=== PATIENT | male | born 1960 | race Caucasian/White ===

== ENCOUNTER 2018-02-16 13:49 | Observation (INO) ==
[2018-02-16 14:34] VITALS: O2SAT 97
[2018-02-16 14:36] VITALS: BMI 35.6
--- NOTE | 2018-02-16 14:38 | History & Physical Report ---
History of Present Illness Date: 02/16/18 Chief complaint: Right leg swelling HPI: Stevie is a 57-year-old male who has a history of left occlusive popliteal thrombus in 2013 following a prolonged car ride. He was admitted to the hospital during that incident, and underwent testing for protein C and protein S deficiency, as well as factor V Leiden which were all negative. He received 6 months of anticoagulation therapy (warfarin), and that was successfully discontinued following the course of treatment. He has recently undergone another extensive period of travel, in which he went on a 12 hour trip by car, followed shortly after that by an 8 hours trip by car. He presented to Dr. Mares's office with complaint of right lower extremity swelling due to known prior history of DVT. He was sent for outpatient sono, which revealed a right lower extremity distal femoral occlusive thrombus. He is being placed in observation status to start anticoagulation therapy at Dr. Mares's request. He reports feeling fairly well. Minimal pain in leg. He does have some mild left LE pedal edema, which he reports is chronic since his last DVT. No chest pain, cough, or SOA. He prefers to avoid telemetry if at all possible due to the discomfort of the patches. He has been informed to notify us right away if he develops any SOA or chest pain. He is in agreement. Review of Systems All systems PM: 10-point ROS was reviewed, no additional remarkable complaints except - Constitutional Constitutional: Absent: headache(s) - Cardiovascular Cardiovascular: Present: edema. Absent: chest pain, dyspnea on exertion, orthopnea, heart murmur Vascular: Present: pedal edema, unilateral swelling - Respiratory Respiratory: Absent: cough, dyspnea, hemoptysis, dyspnea on exertion, pain on inspiration - Gastrointestinal Gastrointestinal: Present: other (Denies history of ulcers of GI bleeding. ). Absent: abdominal pain, hematemesis, melena, nausea, vomiting - Musculoskeletal Musculoskeletal: Absent: back pain Past Medical History Medical History: Medical History (Last Reviewed 02/16/18 @ 14:38 by Ann Rogers APRN) Left leg DVT HTN (hypertension) Surgical History: Finger Surgery. Tonsils. Colonoscopy- normal Family History: Colon CA AFib CAD Stroke. No known clotting DO. Family History: As Above - Social History Smoking status: Never smoker Substance use type: does not use Alcohol intake frequency: does not drink Current occupational status: employed Current residence: Apartment/Private Home Medications Home Medications Medication Instructions Recorded Confirmed Type Mapap Extra Strength 500 mg tablet 500 mg PO .COMPLEX PRN tab 11/08/17 History Lisinopril [Prinivil] 10 mg PO HS 02/16/18 02/16/18 History Allergies Allergy/AdvReac Type Severity Reaction Status Date / Time Penicillins Allergy Verified 02/16/18 11:16 Exam Vital Signs: Temperature 97.9 F 02/16/18 14:33 Pulse Rate 88 02/16/18 14:33 Respiratory Rate 12 02/16/18 14:33 Blood Pressure 137/79 02/16/18 14:33 Pulse Oximetry 97 02/16/18 14:33 - Constitutional Present: no acute distress, average body habitus, cooperative - Routine HEENT Exam Head: Present: normocephalic, atraumatic Eye: Present: EOMI, PERRL, normal accommodation ENT: Present: mucous membranes moist - Routine Neck Exam Present: trachea midline. Absent: JVD, carotid bruit, tenderness, swelling - Routine Respiratory Exam Present: CTA bilaterally. Absent: accessory muscle use, dyspnea, decreased breath sounds, rales, rhonchi, wheezes, crackles - Routine Cardiovascular Exam Present: RRR, S1, S2, no murmur. Absent: gallop, rubs, S3, S4 - Routine Abdominal Exam Present: soft, normoactive bowel sounds, non distended, non tender - Routine Extremities Exam Present: edema (Right LE edema, 3+, Left LE Edema, 1+ chronic. Changes consistent with PVD. ), pulses intact, tenderness. Absent: non tender - Routine Skin Exam Present: intact, dry, warm - Routine Neurological Exam Present: alert, oriented X3, moving all extremities - Routine Psychiatric Exam Present: normal affect, normal thought process, cooperative Results - Labs CBC & Chem 7: 02/16/18 14:56 Labs: Pending - Imaging and Cardiology Venous US Additional comments: Impression: Occlusive deep vein thrombosis in the distal superficial femoral through the popliteal veins. Results were discussed with the ordering physician at 1335 on February 16, 2018. Patient will wait in the radiology waiting area for hospital admission. . Assessment and Plan (1) Right femoral vein DVT Current visit: Yes Status: Acute Assessment and Plan: Impression: Provoked Right LE DVT (prolonged travel) H/O left provoked DVT HTN HLD OA Plan: 02/16/18 Observation. Start oral anticoagulant therapy. NOACs preferred- reviewed the risks/benefits of Pradaxa, Xarelto, Eliquis vs. Warfarin/LMWH bridge. He is agreeable to starting Xarelto. Symptoms to report provided. No ETOH use, hx of GI bleeding, ulcers, etc. Check CBC, INR now for baseline. No chest pain or SOA- will hold off on telemetry for now. If he develops any additional symptoms, he is to report them immediately. Would recommend that he continue Xarelto x 6 months. At that point, he could be referred to hematology for clotting d/o W/U if desired. Protein C,S and Factor V all normal in 2013. Consider prophylactic blood thinners for future prolonged travel once he is off the blood thinners. Home meds for HTN- lisinopril. Likely discharge tomorrow. Will order PAIGE nilson prior to discharge tomorrow. DVT Prophylaxis: Xarelto Resuscitation Status: Full Code - Physician Narrative Narrative: Date: 02/16/18 Time: 1610 S: Pt doing well, denies any acute complaints other than some swelling in his right LE. Pt denies any f/c, cp sob. O: Gen: AAOx3, no acute distress Cards: RRR without mumurs Lungs: CTAB without wheezing A/P: DVT-Agree with starting NOACs, discussed with pt risks of bleeding and he was agreeable to start anti-coagulation. Pt will need to f/u with pcp and figure out if 6 months is enough of a duration as pt has had a previous clot. Pt otherwise stable and can likely discharge tomorrow. Hospital Course Summary Disclaimer: The visit summary below is not to be considered part of the above Progress Note. Hospital Course: Impression: Provoked Right LE DVT (prolonged travel) H/O left provoked DVT HTN HLD OA Plan: 02/16/18 Observation. Start oral anticoagulant therapy. NOACs preferred- reviewed the risks/benefits of Pradaxa, Xarelto, Eliquis vs. Warfarin/LMWH bridge. He is agreeable to starting Xarelto. Symptoms to report provided. No ETOH use, hx of GI bleeding, ulcers, etc. Check CBC, INR now for baseline. No chest pain or SOA- will hold off on telemetry for now. If he develops any additional symptoms, he is to report them immediately. Would recommend that he continue Xarelto x 6 months. At that point, he could be referred to hematology for clotting d/o W/U if desired. Protein C,S and Factor V all normal in 2013. Consider prophylactic blood thinners for future prolonged travel once he is off the blood thinners. Home meds for HTN- lisinopril. Likely discharge tomorrow. Will order PAIGE devine prior to discharge tomorrow.
[2018-02-16] MEDS ORDERED: ACETAMINOPHEN 325 MG TABLET PO PRN (15:13)
[2018-02-16] MEDS ORDERED: SALINE FLUSH 10ml SYRINGE IV PRN (15:13)
[2018-02-16] MEDS ORDERED: ONDANSETRON 4 MG/2 ML INJECTION IVP PRN (15:13)
[2018-02-16] MEDS ORDERED: SENNA + DOCUSATE TABLET PO PRN (15:13)
[2018-02-16] MEDS: RIVAROXABAN 15 MG TABLET PO SCH (15:46)
[2018-02-16] MEDS ORDERED: LISINOPRIL 10 MG TABLET PO SCH (21:00)
[2018-02-17 04:43] VITALS: RESP 18
[2018-02-17 07:34] VITALS: BP 130/67; PULSE 82; TEMP 96.8
[2018-02-17] MEDS: RIVAROXABAN 15 MG TABLET PO SCH (09:05)
--- NOTE | 2018-02-17 09:05 | Discharge Summary ---
Discharge Information Date of admission: 02/16/18 14:13 Anticipated date of discharge: 02/17/18 Attending Physician: Agueda Cardenas MD Primary care physician: Rito Mares, DO - Discharge Diagnosis (1) Right femoral vein DVT Status: Acute Impression: Provoked Right LE DVT (prolonged travel) H/O left provoked DVT HTN HLD OA Mild anemia Mild leukopenia - Procedures Procedures: Doppler Impression: Occlusive deep vein thrombosis in the distal superficial femoral through the popliteal veins. Results were discussed with the ordering physician at 1335 on February 16, 2018. Patient will wait in the radiology waiting area for hospital admission. . - Laboratory Labs: 02/17/18 04:39 02/17/18 04:39 History of Present Illness HPI: Stevie is a 57-year-old male who has a history of left occlusive popliteal thrombus in 2013 following a prolonged car ride. He was admitted to the hospital during that incident, and underwent testing for protein C and protein S deficiency, as well as factor V Leiden which were all negative. He received 6 months of anticoagulation therapy (warfarin), and that was successfully discontinued following the course of treatment. He has recently undergone another extensive period of travel, in which he went on a 12 hour trip by car, followed shortly after that by an 8 hours trip by car. He presented to Dr. Mares's office with complaint of right lower extremity swelling due to known prior history of DVT. He was sent for outpatient sono, which revealed a right lower extremity distal femoral occlusive thrombus. He is being placed in observation status to start anticoagulation therapy at Dr. Mares's request. He reports feeling fairly well. Minimal pain in leg. He does have some mild left LE pedal edema, which he reports is chronic since his last DVT. No chest pain, cough, or SOA. He prefers to avoid telemetry if at all possible due to the discomfort of the patches. He has been informed to notify us right away if he develops any SOA or chest pain. He is in agreement. Objective Vital signs: Temperature 96.8 F 02/17/18 07:32 Pulse Rate 82 02/17/18 07:32 Respiratory Rate 18 02/17/18 07:32 Blood Pressure 130/67 02/17/18 07:32 Pulse Oximetry 97 02/17/18 07:32 Height/Weight/BMI: Height 1.88 m Weight 123.3 kg Body Mass Index 35.6 - Constitutional Present: no acute distress, well nourished, well developed, cooperative - Routine HEENT Exam Head: Present: normocephalic, atraumatic Eye: Present: EOMI, PERRL ENT: Present: mucous membranes moist - Routine Respiratory Exam Present: CTA bilaterally. Absent: accessory muscle use, dyspnea, decreased breath sounds, rales, rhonchi, wheezes, crackles - Routine Cardiovascular Exam Present: RRR, S1, S2, no murmur. Absent: S3, S4, click - Routine Abdominal Exam Present: soft, normoactive bowel sounds, non distended, non tender - Routine Extremities Exam Present: edema (Bilaterally, right > left), pulses intact. Absent: extremity cold to touch - Routine Back/Spine/Pelvis Exam Back/Spine: Present: full ROM - Routine Musculoskeletal Exam Musculoskeletal: Present: normal strength, moving extremities well - Routine Skin Exam Present: intact, dry, warm - Routine Neurological Exam Present: alert, oriented X3, moving all extremities - Routine Psychiatric Exam Present: normal affect, normal thought process, cooperative, good insight, good judgment Hospital Course This is a general summary of the patient's hospital course. For more details refer to the complete medical record. Hospital course: Impression: Provoked Right LE DVT (prolonged travel) H/O left provoked DVT HTN HLD OA Plan: 02/16/18 Observation. Start oral anticoagulant therapy. NOACs preferred- reviewed the risks/benefits of Pradaxa, Xarelto, Eliquis vs. Warfarin/LMWH bridge. He is agreeable to starting Xarelto. Symptoms to report provided. No ETOH use, hx of GI bleeding, ulcers, etc. Check CBC, INR now for baseline. No chest pain or SOA- will hold off on telemetry for now. If he develops any additional symptoms, he is to report them immediately. Would recommend that he continue Xarelto x 6 months. At that point, he could be referred to hematology for clotting d/o W/U if desired. Protein C,S and Factor V all normal in 2013. Consider prophylactic blood thinners for future prolonged travel once he is off the blood thinners. Home meds for HTN- lisinopril. Likely discharge tomorrow. Will order PAIGE hose prior to discharge tomorrow. 02/17/2018 Stevie is doing very well this morning. He reports minimal pain in lower extremities. Shortness of air, no chest pain. Eating well, no GI upset. He is anxious to return home this morning. I again reviewed the risk and benefit of Xarelto with him. He again was given strict return precautions in regards to increasing pain, color or temperature change of lower extremity, chest pain, shortness of air, or signs and symptoms of GI bleeding he needs to return to the hospital. He has been provided a Xarelto co-pay card to assist with medication cost. He reports minimal pain, does not feel that he needs any prescription pain medication at the time of dismissal. Does have very mild anemia and leukopenia, which will need to be rechecked within the next week. Called and d/w Dr. Goyal this morning. Will check LDH, B12, Folate, MMA, Homocysteine today. He is to follow up with Dr. Goyal at the end of next week. Again, he may benefit from consideration for prophylactic anticoagulation when long trips or planned if he does not meet requirements for lifelong anticoagulation. (We discussed this as well). He has no other concerns. He is agreeable for dismissal. Time spent with patient: 25 - 35 minutes Resuscitation Status: Full Code Discharge Plan - Discharge Disposition Discharge Date: 02/17/18 Disposition: 01 Discharged Home, Self-Care *Condition: Stable Reason For Visit (Visit label in EMR): DVT - Discharge Medications *Discharge Medications: New Acetaminophen [Tylenol] 325 - 650 mg PO Q5H PRN tab PRN Reason: Discomfort Rivaroxaban [Xarelto] 1 each PO WM 30 Days #1 tab.ds.pk Rivaroxaban [Xarelto] 20 mg PO WS #30 tab Continue Lisinopril [Prinivil] 10 mg PO HS Discontinued Mapap Extra Strength 500 mg tablet 500 mg PO .COMPLEX PRN tab PRN Reason: pain - Discharge Packet/Instructions *Diet: As tolerated. *Activity: No strenuous activity. Keep right leg elevated when sitting. Hot pack as needed for pain. *Pain Management/Treatment: Tylenol as needed for pain. Avoid Ibuprofen/Aleve *Wound Care: N/A *Expected Signs/Symptoms: Some mild-moderate pain. Low grade fever. Some mild redness, swelling. *Notify Physician if: Fever over 101. Chest pain, shortness of air. Increasing redness, warmth. If leg becomes cool/cold, seek care immediately. j. Blood in stool, urine or vomit. *During Business Hours Contact: Dr. Mares's office *After Business Hours Contact: [facility] *Pending Lab/Results: Follow up w/Provider - Referrals/Follow Up *Referrals/Follow Up: Tom Goyal MD [Physician] - 1 Week (Please call Dr. Goyal's office on Monday. He would like to see you or Monday of this next week. ) Rito Mares DO [Primary Care Provider] - 1 Week - Patient Handouts Patient Handouts: Rivaroxaban (By mouth) - Dismissal Complete Discharge Instructions are:: Complete Physician Narrative - Narrative Physician: Agueda Cardenas MD Attestation Narrative: Date: 02/17/18 Time: 12:05 PM-I examined the patient independently. I reviewed this chart, the patient history, and the [employer]PRENTICE's/PA's documented findings as above. We discussed and formulated the assessment and plan as above with the additions below.-Dr. Cardenas Patient was seen accompanied by his brother. Patient states that the swelling in his right leg is improved today compared to yesterday. He denies any pain. He denies any shortness of breath or chest discomfort. He denies any history of hematemesis, hematochezia, or black stools. On exam he is alert and in no acute distress. Chest is clear to auscultation. Cardiovascular reveals a regular rate and rhythm. Abdomen is soft and nontender. Extremities reveal trace edema bilaterally. The patient had a DVT in 2013 related to a long car ride. At that time he was on Coumadin and had no difficulties with bleeding issues. Lab-white count of 1.9, down from 2.3. Hemoglobin 12.3. Platelets are normal at 201. Neutrophils 62%. Bands 8%. During his hospitalization in 2013 with DVT his white count was 3.4-3.8 and hemoglobin was in the 12 range then. Impression and plan DVT right leg likely provoked by a long car ride, this is his second episode. Swelling is already improved per patient after initiating Xarelto. We'll dismiss today on Xarelto starter pack 15 mg by mouth twice a day for 21 days then 20 mg daily for 7 days. He will be given a prescription for Xarelto 20 mg once daily to urgent after the starter pack has finished. I did discuss these recommendations with him and questions were answered to his apparent understanding. He will avoid aspirin and other NSAIDs while on Xarelto. He will take Tylenol as needed for pain. Regarding his leukopenia, this was discussed with Dr. Goyal and he recommended LDH, B-12, MMA, folate and haptoglobin. These labs are pending. Dr. Goyal recommended follow-up with him as an outpatient this coming week and he will review lab at that time. Interestingly, when the patient was hospitalized in 2013 with DVT white count was mildly low at 3.4-3.8. The patient does not recall being diagnosed with low white count in the past. He does not have frequent infections. Patient will be discharged to home today with plans for follow-up this coming week with Dr. Mares and Dr. Goyal.
== END 2018-02-17 13:05 | disposition home or self-care (01) ==
LOC: MED → SUATTDRO 14:13
PROVIDERS: ADMIT Internal Medicine; ATTEND Internal Medicine